=== PATIENT | female | born 1955 | race Caucasian/White ===

== ENCOUNTER 2016-07-13 18:45 | Observation (INO) ==
--- NOTE | 2016-07-13 18:47 | Emergency Department Note ---
Disposition Clinical Impression: Chest pain, Diabetes, Obesity, Hypertension, History of DVT (deep vein thrombosis), CAD (coronary artery disease) Disposition: Admitted As Inpatient Referrals: NO,PCP [Non-Partnered Physician] - Forms: ED Satisfaction Letter General Adult HPI - General Chief complaint: ED Chest Pain Stated complaint: chest pain Time Seen by Provider: 07/13/16 18:46 Source: patient, family - History of Present Illness HPI Narrative: 60-year-old female with history of diabetes and hypertension as well as a 40% coronary lesion reports to the emergency department complaining of midsternal chest pain radiating to left arm and left jaw. She came in by EMS. She was given aspirin by the EMS providers. She reports her pain has dissipated. The patient has had no trauma to the chest. There is no history of fever or cough or coughing up blood leg swelling or pain or syncope. There is no history of rash. The patient denies abdominal pain vomiting or diarrhea. She describes a pressure-like sensation. There is no history of darwni shortness of breath. The patient has had no back pain. No trouble moving the arms or legs independently. There is no history of convulsion or confusion or dysarthria. The patient reports she had a heart catheter about 2 years ago. There is no history of previous coronary stent. She had a remote DVT but does not usually take blood thinners. There is no history of pulmonary embolism. Patient has no history of aneurysms. No troubles walking talking hearing seeing or speaking. - Related Data Allergies Allergy/AdvReac Type Severity Reaction Status Date / Time acetaminophen [From Percocet] Allergy Rash Verified 07/13/16 18:46 Oxycodone [From Percocet] Allergy Rash Verified 07/13/16 18:46 All systems ED: reviewed and negative except as stated. Past Medical History - Past Medical History Source: patient Medical history: Reports: coronary artery disease, DVT, diabetes, hypertension Physical Exam - General Limitations: no limitations General appearance: alert, in no apparent distress - Head Head exam: atraumatic, normocephalic, normal inspection - Eye Eye exam: Present: normal appearance, PERRL, EOMI - ENT ENT exam: normal exam, normal oropharynx, mucous membranes moist, TM's normal bilaterally, normal external ear exam - Neck Neck exam: Present: normal inspection, full ROM, trachea midline - Chest Chest inspection: Present: normal inspection, symmetric chest wall rise. Absent : tenderness - Respiratory Respiratory exam: Present: normal lung sounds bilaterally. Absent: respiratory distress - Cardiovascular Cardiovascular exam: Present: regular rate, normal rhythm, normal heart sounds - Abdominal Exam Abdominal exam: Present: soft, Non-Tender. Absent: tenderness, distention, guarding, rebound, rigidity, pulsatile mass - Extremities Exam Extremities exam: Present: normal inspection, full ROM, normal capillary refill. Absent: tenderness, pedal edema, joint swelling, calf tenderness - Expanded Lower Extremity Exam Lower leg exam: Absent: Homans' sign Neurovascular/Tendon exam: Present: normal capillary refill. Absent: pulse deficit, motor deficit, sensory deficit, tendon deficit - Back Exam Back exam: Present: normal inspection, full ROM. Absent: tenderness, CVA tenderness (R), CVA tenderness (L), vertebral tenderness - Neurological Exam Neurological exam: Present: alert, oriented X3, CN II-XII intact. Absent: motor sensory deficit - Psychiatric Psychiatric exam: Present: normal affect, normal mood - Skin Skin exam: Present: warm, dry, intact, normal color. Absent: rash, cyanosis, diaphoresis, erythema, pallor, mottled Course Vital Signs Temperature 0 F L 07/13/16 18:50 Pulse Rate 86 07/13/16 18:50 Respiratory Rate 18 07/13/16 18:50 Blood Pressure 146/86 07/13/16 18:50 O2 Sat by Pulse Oximetry 99 07/13/16 18:50 Temperature 0 F L 07/13/16 18:50 Pulse Rate 72 07/13/16 20:18 Respiratory Rate 18 07/13/16 20:18 Blood Pressure 134/70 07/13/16 20:18 O2 Sat by Pulse Oximetry 97 07/13/16 20:18 Oxygen Delivery Oxygen Delivery Room Air Medical Decision Making - [facility] Narrative Medical decision making narrative: Patient is over 50, has a history of hypertension and diabetes and reportedly had a coronary lesion at about 40% on the previous heart catheter. She is describing left-sided chest pain radiating to the left arm and left jaw. She was given aspirin, nitroglycerin paste, and opiate analgesia. The patient is currently stable. Based on her significant risk factors and higher heart score , I thought it be appropriate to admit the patient the hospital. The patient does not appear to have leg swelling or changes suggestive of DVT making PE less likely. There is no evidence of acute intrathoracic abnormality on chest x -ray, the patient has no previous history of thoracic aneurysm. She appears to be stable, I consulted with the hospitalist regarding admission. - Lab Data Lab results reviewed: Yes I reviewed the patient's lab results. Result diagrams: 07/13/16 19:21 07/13/16 19:21 Lab Results 07/13/16 07/13/16 07/13/16 Range/Units 19:21 19:21 19:21 WBC (4.3-11.1) K/mcL RBC (3.82-4.97) M/mcL Hgb (11.5-15.4) g/dL Hct (35.3-44.9) % MCV (83.0-100.0) fL MCH (28.0-33.3) pg MCHC (31.6-35.5) g/dL RDW (11.5-14.5) % Plt Count (140-400) K/mcL MPV (9.4-12.4) fL Immature Gran % (0-4) % Seg Neutrophils % % Lymphocytes % % Monocytes % % Eosinophils % % Basophils % % Neutrophils # (1.6-8.9) K/mcL Lymphocytes # (0.6-4.6) K/mcL Monocytes # (0.0-1.3) K/mcL Eosinophils # (0.0-0.6) K/mcL Basophils # (0.0-0.2) K/mcL Immature Plt Fraction (1.1-6.1) % PT 10.1 (9.4-12.1) Seconds INR 0.9 APTT 32.5 (26.0-36.0) Seconds Sodium (136-145) mEq/L Potassium (3.5-4.5) mEq/L Chloride (98-109) mEq/L Carbon Dioxide (19-29) mEq/L BUN (7-20) mg/dL Creatinine (0.57-1.11) mg/dL Est GFR ( Amer) (> 60) Est GFR (Non-Af Amer) (> 60) BUN/Creatinine Ratio (6-26) Glucose (70-99) mg/dL Calculated Osmolality (280-300) Calcium (8.6-10.8) mg/dL Total Bilirubin 0.6 (0.2-1.2) mg/dL Direct Bilirubin 0.2 (0.0-0.5) mg/dL Indirect Bilirubin 0.4 (0.0-1.2) mg/dL AST 20 (5-34) Units/L ALT 33 (0-55) Units/L Alkaline Phosphatase 103 (38-126) Units/L Troponin I (0-0.03) ng/mL C-Reactive Protein 2 (Less than 5) mg/L Serum Total Protein 8.7 H (6.0-8.3) g/dL Albumin 4.6 (3.5-5.0) g/dL Globulin 4.1 H (2.4-3.5) g/dL Albumin/Globulin Ratio 1.1 (1.1-2.2) Lipase 30 (8-78) Units/L 07/13/16 07/13/16 07/13/16 Range/Units 19:21 19:21 19:21 WBC 7.6 (4.3-11.1) K/mcL RBC 5.27 H (3.82-4.97) M/mcL Hgb 15.4 (11.5-15.4) g/dL Hct 44.4 (35.3-44.9) % MCV 84.3 (83.0-100.0) fL MCH 29.2 (28.0-33.3) pg MCHC 34.7 (31.6-35.5) g/dL RDW 12.5 (11.5-14.5) % Plt Count 357 (140-400) K/mcL MPV 9.4 (9.4-12.4) fL Immature Gran % 0.3 (0-4) % Seg Neutrophils % 54.8 % Lymphocytes % 33.8 % Monocytes % 7.7 % Eosinophils % 2.4 % Basophils % 1.0 % Neutrophils # 4.2 (1.6-8.9) K/mcL Lymphocytes # 2.6 (0.6-4.6) K/mcL Monocytes # 0.6 (0.0-1.3) K/mcL Eosinophils # 0.2 (0.0-0.6) K/mcL Basophils # 0.1 (0.0-0.2) K/mcL Immature Plt Fraction 2.6 (1.1-6.1) % PT (9.4-12.1) Seconds INR APTT (26.0-36.0) Seconds Sodium 143 (136-145) mEq/L Potassium 3.9 (3.5-4.5) mEq/L Chloride 104 (98-109) mEq/L Carbon Dioxide 24 (19-29) mEq/L BUN 11 (7-20) mg/dL Creatinine 0.91 (0.57-1.11) mg/dL Est GFR ( Amer) > 60 (> 60) Est GFR (Non-Af Amer) > 60 (> 60) BUN/Creatinine Ratio 12 (6-26) Glucose 158 H (70-99) mg/dL Calculated Osmolality 299 (280-300) Calcium 10.2 (8.6-10.8) mg/dL Total Bilirubin (0.2-1.2) mg/dL Direct Bilirubin (0.0-0.5) mg/dL Indirect Bilirubin (0.0-1.2) mg/dL AST (5-34) Units/L ALT (0-55) Units/L Alkaline Phosphatase (38-126) Units/L Troponin I 0.00 (0-0.03) ng/mL C-Reactive Protein (Less than 5) mg/L Serum Total Protein (6.0-8.3) g/dL Albumin (3.5-5.0) g/dL Globulin (2.4-3.5) g/dL Albumin/Globulin Ratio (1.1-2.2) Lipase (8-78) Units/L - Radiology Data Radiology results reviewed: Yes I reviewed the patient's radiology results.
[2016-07-13 19:30] LABS: Basophils # 0.1 K/mcL (0.0-0.2); Eosinophils # 0.2 K/mcL (0.0-0.6); Eosinophils % 2.4 %; Hematocrit 44.4 % (35.3-44.9); Hemoglobin 15.4 g/dL (11.5-15.4); Immature Granulocytes % 0.3 % (0-4); Immature Platelets 2.6 % (1.1-6.1); Lymphocytes # 2.6 K/mcL (0.6-4.6); Lymphocytes % 33.8 %; Mean Corpuscular HGB Conc 34.7 g/dL (31.6-35.5); Mean Corpuscular Hemoglobin 29.2 pg (28.0-33.3); Mean Corpuscular Volume 84.3 fL (83.0-100.0); Mean Platelet Volume 9.4 fL (9.4-12.4); Monocytes # 0.6 K/mcL (0.0-1.3); Monocytes % 7.7 %; Neutrophils # 4.2 K/mcL (1.6-8.9); Platelet Count 357 K/mcL (140-400); Red Blood Count 5.27 M/mcL (3.82-4.97); Red Cell Distribution Width 12.5 % (11.5-14.5); Segmented Neutrophils % 54.8 %
[2016-07-13] MEDS ORDERED: Ondansetron 4 MG/2 ML VIAL IVP ONE (19:33)
[2016-07-13] MEDS ORDERED: Nitroglycerin 1 INCH/GM PACKET TP ONE (19:33)
[2016-07-13] MEDS ORDERED: *HR* Morphine 2 MG/ML SYRINGE IVP ONE (19:34)
[2016-07-13 19:42] LABS: INR 0.9; Prothrombin Time 10.1 Seconds (9.4-12.1)
[2016-07-13 19:43] LABS: BUN/Creatinine Ratio 12 (6-26); Blood Urea Nitrogen 11 mg/dL (7-20); Calcium 10.2 mg/dL (8.6-10.8); Carbon Dioxide 24 mEq/L (19-29); Chloride 104 mEq/L (98-109); Glucose 158 mg/dL (70-99); Osmolality,Calculated 299 (280-300); Potassium 3.9 mEq/L (3.5-4.5); Sodium 143 mEq/L (136-145); eGFR For African Americans > 60 (> 60); eGFR For Non-African Americans > 60 (> 60)
[2016-07-13 19:44] LABS: Albumin 4.6 g/dL (3.5-5.0); Albumin/Globulin Ratio 1.1 (1.1-2.2); Bilirubin,Direct 0.2 mg/dL (0.0-0.5); Bilirubin,Indirect 0.4 mg/dL (0.0-1.2); Bilirubin,Total 0.6 mg/dL (0.2-1.2); Globulin 4.1 g/dL (2.4-3.5); Total Protein 8.7 g/dL (6.0-8.3)
[2016-07-13 19:45] LABS: Activated Partial Thrombo Time 32.5 Seconds (26.0-36.0)
[2016-07-13] MEDS ORDERED: Aspirin 325 MG TABLET PO ONE (20:20)
[2016-07-13] MEDS ORDERED: *HR* HYDROmorphone (PF) 1 MG/ML SYRINGE IVP ONE (20:20)
[2016-07-13] MEDS ORDERED: D5% in Water 1,000 ML IV PRN (22:16)
[2016-07-13] MEDS ORDERED: Dextrose Gel 15 GM PO PRN ×2 (22:16)
[2016-07-13] MEDS ORDERED: *HR* Dextrose 50 % in Water (Syg) 50 ML SYRINGE IVP PRN (22:16)
[2016-07-13] MEDS ORDERED: Naloxone 0.4 MG/ML INJ IVP PRN (22:18)
[2016-07-13] MEDS ORDERED: *HR* Morphine 2 MG/ML SYRINGE IVP PRN (22:26)
[2016-07-13] MEDS ORDERED: Ondansetron 4 MG/2 ML VIAL IVP PRN (22:26)
[2016-07-13] MEDS ORDERED: Acetaminophen 325 MG TABLET PO PRN (22:26)
--- NOTE | 2016-07-13 22:46 | Internal Med History&Physical ---
Date of Encounter: 07/13/16 Time of Encounter: 20:35 Internal Medicine - H&P: HPI Chief complaint: chest pain, SOB X 1 DAY Admitted From: Emergency Dept Plans for Post Hospital Care: Home History of present illness: Ms. Devine is a 60 year old female with medical history significant for DM2, HTN , HLD, she presents via EMS with sub-sternal and left-sided chest pain at 4: 30pm today, with radiation to the left upper arm, shoulder, neck and jaw via in by EMS. She received SL nitroglycerine and aspirin in transit with only a marginal improvement in pain. At the time she arrived the ED, THE CHEST PAIN HAD DISSIPATED. She associates period of chest pain with nausea and dizziness. She had a similar but less intense chest pain. No recent chest trauma, no cough, or sorethroat, coughing, leg swelling or syncope. The patient has had no trauma to the chest. There is no history of fever or cough or coughing up blood leg swelling or pain or syncope. There is no history of rash. The patient denies abdominal pain vomiting or diarrhea. She had LHC in 2013, and was informed she had 40% stenosis of one of her coronaries. No history of SC. She has a emote history of DVTbut is not on anticoagulation. She is FULL CODE as per discussion, she nominates her daughter as her NOK/POA. Source: patient Medical history: Reports: coronary artery disease, DVT, diabetes, hypertension, fibromyalgia, DM2, seizure disorder, TIA/CVA, LHC IN 2013. Surgical history: QUAN, thyroidectomy, bladder sling, cholecystectomy, Psychiatry history: none Family history: mother AND BROTHER CAD/CABG, sister wears a loop recorder. MOTHER: KIDNEY DX, VALVOLOPLASTY, DM2, brother DM2, HTN ROS: A 10-point ROS was performed, positives and relevant negatives are detailed , system-symptom not mentioned is assumed negative unless otherwise stated. Vital Signs Temperature 0 F L 07/13/16 18:50 Pulse Rate 86 07/13/16 18:50 Respiratory Rate 18 07/13/16 18:50 Blood Pressure 146/86 07/13/16 18:50 O2 Sat by Pulse Oximetry 99 07/13/16 18:50 Temperature 0 F L 07/13/16 18:50 Pulse Rate 72 07/13/16 20:18 Respiratory Rate 18 07/13/16 20:18 Blood Pressure 134/70 07/13/16 20:18 O2 Sat by Pulse Oximetry 97 07/13/16 20:18 O/E: not in distress, ill looking, lethargic HEENT: Not pale, anicteric, afebrile, acyanotic, no JVD Chest: CTAB, chest pain not reproduced by chest wall palpation or arm movements. Heart/CVS: RRR, HS1/2, no murmur Abdomen: soft, non-tender, no masses [employer]: AAO x 3, no gross focal neurological deficits, moves all limbs spontaneously. Muscle power=5/5 in all extremities Skin: no active skin lesion Extremities: no normal pedal pulses, no calf tenderness, no pedal edema Lab Results 07/13/16 07/13/16 07/13/16 Range/Units 19:21 19:21 19:21 WBC (4.3-11.1) K/mcL RBC (3.82-4.97) M/mcL Hgb (11.5-15.4) g/dL Hct (35.3-44.9) % MCV (83.0-100.0) fL MCH (28.0-33.3) pg MCHC (31.6-35.5) g/dL RDW (11.5-14.5) % Plt Count (140-400) K/mcL MPV (9.4-12.4) fL Immature Gran % (0-4) % Seg Neutrophils % % Lymphocytes % % Monocytes % % Eosinophils % % Basophils % % Neutrophils # (1.6-8.9) K/mcL Lymphocytes # (0.6-4.6) K/mcL Monocytes # (0.0-1.3) K/mcL Eosinophils # (0.0-0.6) K/mcL Basophils # (0.0-0.2) K/mcL Immature Plt Fraction (1.1-6.1) % PT 10.1 (9.4-12.1) Seconds INR 0.9 APTT 32.5 (26.0-36.0) Seconds Sodium (136-145) mEq/L Potassium (3.5-4.5) mEq/L Chloride (98-109) mEq/L Carbon Dioxide (19-29) mEq/L BUN (7-20) mg/dL Creatinine (0.57-1.11) mg/dL Est GFR ( Amer) (> 60) Est GFR (Non-Af Amer) (> 60) BUN/Creatinine Ratio (6-26) Glucose (70-99) mg/dL Calculated Osmolality (280-300) Calcium (8.6-10.8) mg/dL Total Bilirubin 0.6 (0.2-1.2) mg/dL Direct Bilirubin 0.2 (0.0-0.5) mg/dL Indirect Bilirubin 0.4 (0.0-1.2) mg/dL AST 20 (5-34) Units/L ALT 33 (0-55) Units/L Alkaline Phosphatase 103 (38-126) Units/L Troponin I (0-0.03) ng/mL C-Reactive Protein 2 (Less than 5) mg/L Serum Total Protein 8.7 H (6.0-8.3) g/dL Albumin 4.6 (3.5-5.0) g/dL Globulin 4.1 H (2.4-3.5) g/dL Albumin/Globulin Ratio 1.1 (1.1-2.2) Lipase 30 (8-78) Units/L 07/13/16 07/13/16 07/13/16 Range/Units 19:21 19:21 19:21 WBC 7.6 (4.3-11.1) K/mcL RBC 5.27 H (3.82-4.97) M/mcL Hgb 15.4 (11.5-15.4) g/dL Hct 44.4 (35.3-44.9) % MCV 84.3 (83.0-100.0) fL MCH 29.2 (28.0-33.3) pg MCHC 34.7 (31.6-35.5) g/dL RDW 12.5 (11.5-14.5) % Plt Count 357 (140-400) K/mcL MPV 9.4 (9.4-12.4) fL Immature Gran % 0.3 (0-4) % Seg Neutrophils % 54.8 % Lymphocytes % 33.8 % Monocytes % 7.7 % Eosinophils % 2.4 % Basophils % 1.0 % Neutrophils # 4.2 (1.6-8.9) K/mcL Lymphocytes # 2.6 (0.6-4.6) K/mcL Monocytes # 0.6 (0.0-1.3) K/mcL Eosinophils # 0.2 (0.0-0.6) K/mcL Basophils # 0.1 (0.0-0.2) K/mcL Immature Plt Fraction 2.6 (1.1-6.1) % PT (9.4-12.1) Seconds INR APTT (26.0-36.0) Seconds Sodium 143 (136-145) mEq/L Potassium 3.9 (3.5-4.5) mEq/L Chloride 104 (98-109) mEq/L Carbon Dioxide 24 (19-29) mEq/L BUN 11 (7-20) mg/dL Creatinine 0.91 (0.57-1.11) mg/dL Est GFR ( Amer) > 60 (> 60) Est GFR (Non-Af Amer) > 60 (> 60) BUN/Creatinine Ratio 12 (6-26) Glucose 158 H (70-99) mg/dL Calculated Osmolality 299 (280-300) Calcium 10.2 (8.6-10.8) mg/dL Total Bilirubin (0.2-1.2) mg/dL Direct Bilirubin (0.0-0.5) mg/dL Indirect Bilirubin (0.0-1.2) mg/dL AST (5-34) Units/L ALT (0-55) Units/L Alkaline Phosphatase (38-126) Units/L Troponin I 0.00 (0-0.03) ng/mL C-Reactive Protein (Less than 5) mg/L Serum Total Protein (6.0-8.3) g/dL Albumin (3.5-5.0) g/dL Globulin (2.4-3.5) g/dL Albumin/Globulin Ratio (1.1-2.2) Lipase (8-78) Units/L IMP Atypical chest pain Chronic morbidities CAD DM2 HTN HLD Seizure disorder Fibromyalgia PLAN Admit to telemetry ACS work-up OPTIMAL PAIN CONTROL Evaluate for cardiovascular risk factors Probable cardiac stress test in the AM IF serial troponin remains normal DVT prophylaxis with Lovenox. Continue other medications of chronic morbidties. I discussed my findings and assessment with the patient, she verbalized understanding and is agreeable to admission. She is high risk due to pain, especially in the setting of multiple cardiovascualr risk factors. Past Med Surg Social Fam HX - Past Medical History Medical history: coronary artery disease, DVT, diabetes, fibromyalgia, hypertension, seizures Psychiatric history: no psych history - Past Surgical History Surgical History: no surgical history - Social History Smoking Status: Never smoker Smokeless Tobacco Status: No Alcohol use: none Drug use: none - Family History Mother Hx Family Cardiac Disorders: Yes (valve replacement) Brother Hx Family Cardiac Disorders: Yes (open heart x2) Internal Medicine - H&P: Meds Aspirin [Lo-Dose Aspirin EC] 81 mg PO DAILY 07/13/16 [History] Atorvastatin Calcium 10 mg PO DAILY 07/13/16 [History] Calcium Carb/Mag/Vitamin D3 [Coral Calcium 1,500 mg Cap] 1 each PO DAILY [History] Clopidogrel [Plavix] 75 mg PO DAILY 07/13/16 [History] Diclofenac Sodium [Voltaren] 100 gm TP DAILY PRN 07/13/16 [History] LevETIRAcetam [Keppra] 500 mg PO BID 07/13/16 [History] Levothyroxine [Synthroid] 125 mcg PO 0630 07/13/16 [History] Metformin [Glucophage] 1,000 mg PO BID 07/13/16 [History] Allergies acetaminophen [From Percocet] Allergy (Verified 07/13/16 18:46) Rash Oxycodone [From Percocet] Allergy (Verified 07/13/16 18:46) Rash All Systems PM: A 10-system review of systems was performed and is negative for pertinent findings except as documented above in the HPI. - Constitutional Vitals: Temp Pulse Resp BP Pulse Ox 97.6 F 58 14 142/79 93 L 07/13/16 22:00 07/13/16 22:00 07/13/16 22:00 07/13/16 22:00 07/13/16 22:00 Internal Med - H&P Results - Labs CBC & Chem 7: 07/13/16 19:21 07/13/16 19:21
[2016-07-13] MEDS: Insulin LISPRO 300 UNITS/3 ML VIAL SQ SCH (22:54)
[2016-07-13 23:19] LABS: Hemoglobin A1C 7.2 %
[2016-07-14] MEDS ORDERED: *HR* Enoxaparin 40 MG/0.4 ML SYRINGE SQ SCH (06:00)
[2016-07-14] MEDS ORDERED: Regadenoson 0.4 MG/5 ML SYRINGE IVP ONE (06:07)
[2016-07-14] MEDS: Insulin LISPRO 300 UNITS/3 ML VIAL SQ SCH ×2 (07:00→11:58)
[2016-07-14] MEDS ORDERED: levETIRAcetam 250 MG TABLET PO SCH (09:00)
[2016-07-14] MEDS ORDERED: Aspirin Enteric Coated 81 MG Tablet PO SCH (09:00)
--- NOTE | 2016-07-14 10:55 | Nuclear Medicine Stress Report ---
Regadenoson Nuclear Stress Name: Dulce Devine Date of Study: 07/14/2016 Date: 1955 Ht: 66.0 in Medical Record#: [id number] Age: 60 Wt: 185.0 lb Gender: Female Order #: [id number] Location: [facility] OP Room: [facility] Supervising Provider: Sammie Valladares CNP Reading Physician: Julissa Bettencourt DO Ordering Physician: Jamia Pérez CNP Primary Care Physician: Cynthia Grubbs CNP Stress Technologist: Char Varner RRT Sales Support Representative: Adrian Albrecht Indications: Chest Pain Impression: Perfusion imaging was negative for ischemia or infarct. Pharmacologic ECG was negative for ischemia at the level of heart rate achieved. Gated EF = 66%. History: Hypertension Diabetes Stress Test Summary: Stress Test Type: Pharmacologic Regadenoson 0.4mg/5ml given IV Baseline Information: Initial Heart Rate: 56 Blood Pressure: 120/70 Stress Information: Test Terminated Due to (primary): As per protocol Maximum Blood Pressure: 128/68 Maximum Heart Rate: 90 Percent Maximum Heart Rate Achieved: 56 Double Product: [id number] METS Reached: 1 Symptoms: Chest pain same during testing Nuclear Summary: SPECT myocardial perfusion imaging using [id number] Sestamibi given intravenously was performed at rest and following cardiac stress testing. The resting images were obtained following initial dose of 11.7 mCi. Following stress an additional dose of 31.8 mCi was given at peak exercise or 30 seconds post regadenoson infusion. Medication Given: Time Medication Dose Units Route Findings: Stress Note * Resting ECG demonstrated normal sinus rhythm and otherwise normal appearing ECG. * Pharmacologic stress ECG is negative for ischemia at level of heart rate achieved. * No arrhythmias were noted during stress. * Patient had no chest pain during stress. Hemodynamic responses * Normal hemodynamic responses to pharmacologic stress. Study Quality * Study quality is good. Gated EF % * Gated EF = 66%. Left Ventricle * The left ventricle is not dilated. TID * No evidence of transient ischemic dilatation. Lung Uptake * There is no evidence of increase lung uptake. NORMALS * Normal wall motion. * Normal segmental perfusion in stress. * Normal Segmental Perfusion in rest. Updated by Julissa Bettencourt on 07/14/2016 10:46:58 AM electronically signed on 07/14/2016 10:48:12 AM with status of Final
[2016-07-14 11:12] VITALS: BP 111/62
--- NOTE | 2016-07-14 13:27 | Discharge Summary ---
Date of Encounter: 07/14/16 Time of Encounter: 12:30 - Discharge Diagnosis (1) Chest pain Priority: Primary Status: Acute Comments: Chest x-ray negative. Troponins negative. Stress test negative. ACS ruled out. After patient was informed that acute coronary syndrome was ruled out, she then stated that she was having left-sided facial numbness as well as left arm weakness. Left-sided anterior chest pain is reproducible with palpation and highly consistent with musculoskeletal etiology. Qualifiers: Chest pain type: unspecified Qualified Code(s): R07.9 - Chest pain, unspecified (2) LUE weakness Priority: Primary Status: Acute Comments: Very low suspicion for acute CVA given the inconsistency of her symptoms and her physical examination however will obtain head CT. Head CT negative. Follow -up outpatient. (3) Fibromyalgia Priority: Secondary Status: Chronic (4) CAD (coronary artery disease) Priority: Secondary Status: Chronic Qualifiers: Coronary Disease-Associated Artery/Lesion type: [place] artery [place] vs. transplanted heart: [place] heart Associated angina: without angina Qualified Code(s): I25.10 - Atherosclerotic heart disease of [place] coronary artery without angina pectoris (5) Diabetes Priority: Secondary Status: Chronic Comments: Controlled at home with an A1c of 7.2%, recommend continued follow-up outpatient. Qualifiers: Diabetes mellitus type: type 2 Diabetes mellitus complication status: without complication Diabetes mellitus senior living insulin use: without senior living use Qualified Code(s): E11.9 - Type 2 diabetes mellitus without complications (6) History of DVT (deep vein thrombosis) Priority: Secondary Status: Chronic (7) Hypertension Priority: Secondary Status: Chronic Comments: Controlled, recommend continued follow up outpatient. Qualifiers: Hypertension type: unspecified secondary hypertension Qualified Code(s): I15.9 - Secondary hypertension, unspecified; I15 - Secondary hypertension (8) Obesity Priority: Secondary Status: Chronic Qualifiers: Obesity type: due to excess calories Obesity severity: non-morbid Qualified Code(s): E66.09 - Other obesity due to excess calories - Discharge Medications Home Medications: Aspirin [Lo-Dose Aspirin EC] 81 mg PO DAILY 07/13/16 [History] Atorvastatin Calcium 10 mg PO DAILY 07/13/16 [History] Calcium Carb/Mag/Vitamin D3 [Coral Calcium 1,500 mg Cap] 1 cap PO DAILY [History] Clopidogrel [Plavix] 75 mg PO DAILY 07/13/16 [History] Diclofenac Sodium [Voltaren] 100 gm TP DAILY PRN 07/13/16 [History] LevETIRAcetam [Keppra] 500 mg PO BID 07/13/16 [History] Levothyroxine [Synthroid] 125 mcg PO DAILY 07/13/16 [History] Metformin [Glucophage] 1,000 mg PO BID 07/13/16 [History] Allergies/Adverse Reactions: Allergies acetaminophen [From Percocet] Allergy (Verified 07/13/16 18:46) Rash Oxycodone [From Percocet] Allergy (Verified 07/13/16 18:46) Rash Procedures/tests Complete & Pending: Procedures Performed prior 72 hours Category Date Time Status CT head/brain wo con [CT] Routine Cat Scan 07/14/16 12:43 Taken NM chidi perf SPECT multi [NM] Routine Exams 07/14/16 05:47 Taken EKG [ECG 12 lead ECG] [ECG] Stat Y 07/14/16 04:31 Completed SP pharm nuclear stress Routine Y 07/14/16 22:43 Completed Date of admission: 07/13/16 21:08 Primary care physician: Cynthia Grubbs CNP Discharging clinician: Jamia Pérez Anticipated date of discharge: 07/14/16 (Head CT pending) - Patient Status Disposition: Home, Self-Care Condition: Good Functional capacity at discharge: independent ambulation Overall status at discharge: patient is back to baseline - Discharge Instructions Follow Up With: Cynthia Grubbs CNP [Primary Care Provider] - 07/16/16 8:00 am Dane Nagel DO [Partnered Physician] - Additional Instructions: Follow-up with primary care provider as scheduled. Follow-up with neurology as needed for further EMG testing at Neurologist's discretion - Diet and Activity Activity: increase activity as tolerated Diet: diabetic diet, low fat, low cholesterol, low salt diet Hospital course: Ms. Devine is a 60 year old female with past medical history of diabetes, hypertension, hyperlipidemia, fibromyalgia, CAD. Patient presented to the emergency room chief complaint substernally and left-sided chest pain beginning on the day of presentation. Patient stating chest pain radiated to her left upper arm, shoulder, neck and jaw. Patient received nitroglycerin and aspirin in route to the emergency department with marginal improvement in her pain. Pain had dissipated prior to presentation to the emergency department. Since she has symptoms of nausea and dizziness. Patient denied cough, leg swelling, syncope or trauma. Workup in the emergency department unremarkable. Chest x- ray negative. Patient was admitted to the hospitalist service for further evaluation and management. Troponins negative. Patient had a nuclear stress test that was negative. ACS ruled out. Upon receiving results of stress test, patient's chief complaint then quickly became left-sided facial numbness as well as left upper extremity weakness. Her symptoms were inconsistent on examination and by history. Patient also endorsed intermittent blurred vision over the past several weeks prior to presentation but was unable to state how long the episodes will last him whether or not it was 1 or both eyes. Very low suspicion for CVA. Head CT obtained and was negative. Given the inconsistency between her symptoms and her physical examination, no further workup warranted at that point as she did not elicit these symptoms until after her chest pain was ruled out. On examination, chest pain reproducible with palpation and consistent with musculoskeletal etiology. 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 Of note, she sees neurologist Dr. Nagel and she has upcoming EMGs related to her intermittent lower extremity weaknesses. She was discharged home in stable condition with close outpatient follow-up recommended. ITS Impressions Chest X-Ray 07/13/16 19:06 IMPRESSION: No acute cardiopulmonary abnormality. D/ / Trace Puente MD / Trace Puente MD Interpreting Provider: Trace Puente MD Head CT 07/14/16 12:43 IMPRESSION: No acute intracranial abnormality. D/ / Swapnil Castillo MD / Swapnil Castillo MD Interpreting Provider: Swapnil Castillo MD Nuclear stress test impression: Perfusion imaging was negative for ischemia or infarct. Pharmacologic ECG was negative for ischemia at the level of heart rate achieved. Gated ejection fraction = 66%. - Time Spent with Patient Total time spent providing and/or coordinating discharge services: - Constitutional Vitals: Temp Pulse Resp BP Pulse Ox 98.0 F 57 17 111/62 95 07/14/16 11:09 07/14/16 11:09 07/14/16 11:09 07/14/16 11:09 07/14/16 11:09 General appearance: Present: A&O X 3, pleasant, no acute distress, answers questions appropriately - Head Head exam: Present: atraumatic, normocephalic - Eye Eye exam: Present: PERRL, conjuntiva pink, sclera anicteric Pupils: Present: PERRL - Neck Neck exam general surgery: Present: supple, trachea midline. Absent: lymphadenopathy - Respiratory Respiratory exam: Present: CTAB. Absent: accessory muscle use, rales, respiratory distress, rhonchi, wheezes - Cardiovascular Cardiovascular exam: Present: RRR, +S1, +S2. Absent: diastolic murmur, gallop, rubs, systolic murmur - GI/Abdominal GI/Abdominal exam: Present: normal bowel sounds, soft, no peritoneal signs. Absent: distended, tenderness - Extremities Exam Extremities exam: Present: warm, radial pulses palpable and symetrical. Absent : calf tenderness, cyanotic, pedal edema - Neurological Exam Neurological exam: Present: alert, CN II-XII intact, oriented X3, no focal deficits. Absent: strengths equal and symetr throughout (Inconsistent; LUE4/5) , pronater drift, facial droop, speech deficit - Expanded Neurological Exam Neurological exam expanded: Present: protecting the airway Patient oriented to: Present: person, place, time Speech: Present: fluid speech Cranial Nerves: EOM's intact PM: Normal, tongue deviation PM: Normal Neuro motor strength exam: LUE: 4 (inconsistent- only present intermittently), RUE: 5, LLE: 5, RLE: 5 Coma Scale Eye Opening: Spontaneous Coma Scale Motor Response: Obeys Commands Coma Scale Verbal Response: Oriented Coma Scale Total: 15 - Skin Skin exam: Present: dry, intact, normal color, warm
--- NOTE | 2016-07-14 16:06 | Electrocardiograph Report ---
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
--- NOTE | 2016-07-14 16:14 | Electrocardiograph Report ---
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
== END 2016-07-14 16:00 | disposition home or self-care (01) ==
LOC: EMEROO 18:45 → 3BNU 18:45
PROVIDERS: ADMIT Family Medicine; ATTEND Nurse Practitioner Family

== ENCOUNTER 2020-07-11 14:48 | Inpatient (IN) ==
[2020-07-11] MEDS ORDERED: Aspirin 81 MG TAB.CHEW PO ONE (15:01)
[2020-07-11 15:31] LABS: Basophils # 0.1 K/mcL (0.0-0.2); Eosinophils # 0.2 K/mcL (0.0-0.6); Eosinophils % 1.9 %; Hemoglobin 12.5 g/dL (11.5-15.4); Immature Granulocytes % 0.4 % (0-4); Lymphocytes # 1.9 K/mcL (0.6-4.6); Lymphocytes % 23.8 %; Mean Corpuscular HGB Conc 33.8 g/dL (31.6-35.5); Mean Corpuscular Hemoglobin 29.4 pg (28.0-33.3); Mean Corpuscular Volume 87.1 fL (83.0-100.0); Mean Platelet Volume 9.8 fL (9.4-12.4); Monocytes # 0.7 K/mcL (0.0-1.3); Monocytes % 8.5 %; Neutrophils # 5.2 K/mcL (1.6-8.9); Platelet Count 273 K/mcL (140-400); Red Blood Count 4.25 M/mcL (3.82-4.97); Red Cell Distribution Width 12.3 % (11.5-14.5); Segmented Neutrophils % 64.4 %
[2020-07-11 15:47] LABS: BUN/Creatinine Ratio 29 (6-26); Blood Urea Nitrogen 23 mg/dL (8-23); Calcium 9.5 mg/dL (8.6-10.3); Carbon Dioxide 28 mEq/L (23-29); Chloride 105 mEq/L (98-107); Glucose 137 mg/dL (70-105); Osmolality,Calculated 294 (280-300); Potassium 4.5 mEq/L (3.5-5.1); Sodium 139 mEq/L (136-145); Troponin I < 0.03 ng/mL (< 0.04); eGFR For African Americans > 60 (> 60); eGFR For Non-African Americans > 60 (> 60)
[2020-07-11 16:09] LABS: Bacteria,Urine Moderate per hpf (None-Few); Bilirubin,Urine Negative (Negative); Blood,Urine Negative (Negative); Clarity,Urine Clear (Clear); Color,Urine Yellow (Yellow); Glucose,Urine (UA) Normal (Normal); Hyaline Casts,Urine Few per lpf (None Seen); Ketones,Urine Trace mg/dL (Negative); Leukocyte Esterase,Urine Small (Negative); Mucus,Urine Few per lpf (None-Few); Nitrite,Urine Positive (Negative); PH,Urine 5.5 pH Units (5.0-8.0); Protein,Urine 100 mg/dL (Neg-Trace); RBC,Urine 0-3 per hpf (0-3); Specific Gravity,Urine > 1.030 (1.010-1.025); Squamous Epithelial Cell,Urine Few per hpf (None-Few); Transitional Epi Cells,Urine Few per hpf (None-Few); Urobilinogen,Urine Normal (Normal)
[2020-07-11 16:13] LABS: INR 1.1; Prothrombin Time 13.1 Seconds (9.4-12.1)
[2020-07-11 16:15] LABS: Activated Partial Thrombo Time 30.1 Seconds (26.0-36.0)
[2020-07-11] MEDS ORDERED: Morphine Sulfate 2 MG/ML SYRINGE IVP ONE (18:13)
[2020-07-11] MEDS ORDERED: Nitroglycerin 0.4 MG TAB.SUBL SL PRN (18:14)
[2020-07-11] MEDS ORDERED: D5% in Water 1,000 ML IVC PRN (18:17)
[2020-07-11] MEDS ORDERED: *HR* Dextrose 50 % in Water (Vial) 50 ML VIAL IVP PRN (18:17)
[2020-07-11] MEDS ORDERED: Dextrose Gel 15 GM/37.5 ML TUBE PO PRN ×2 (18:17)
[2020-07-11] MEDS ORDERED: Naloxone 0.4 MG/ML INJ IVP PRN (18:22)
[2020-07-11] MEDS ORDERED: Acetaminophen 325 MG TABLET PO PRN (18:22)
[2020-07-11] MEDS: Insulin LISPRO 300 UNITS/3 ML VIAL SUBQ SCH (20:16)
[2020-07-11] MEDS: Piperacillin/Tazobactam 3.375 GM in 0.9 % Sodium Chloride Mini Bag 100 ML IVPB SCH (20:29)
[2020-07-11] MEDS: *HR* Heparin 5,000 UNIT/ML VIAL SQ SCH (20:29)
[2020-07-11] MEDS ORDERED: Morphine Sulfate 2 MG/ML SYRINGE IVP PRN (21:50)
[2020-07-12] MEDS: Latanoprost 2.5 ML BOTTLE BOTH EYES SCH ×2 (01:57→18:33)
[2020-07-12] MEDS: Insulin LISPRO 300 UNITS/3 ML VIAL SUBQ SCH ×9 (02:04→22:47)
[2020-07-12] MEDS: Piperacillin/Tazobactam 3.375 GM in 0.9 % Sodium Chloride Mini Bag 100 ML IVPB SCH ×3 (03:50→18:32)
[2020-07-12 04:27] LABS: Hematocrit 37.8 % (35.3-44.9); Hemoglobin 12.4 g/dL (11.5-15.4); Mean Corpuscular HGB Conc 32.8 g/dL (31.6-35.5); Mean Corpuscular Volume 88.5 fL (83.0-100.0); Mean Platelet Volume 9.8 fL (9.4-12.4); Platelet Count 268 K/mcL (140-400); Red Blood Count 4.27 M/mcL (3.82-4.97); Red Cell Distribution Width 12.3 % (11.5-14.5); White Blood Count 6.9 K/mcL (4.3-11.1)
[2020-07-12 04:35] LABS: Prothrombin Time 11.6 Seconds (9.4-12.1)
[2020-07-12 04:38] LABS: Activated Partial Thrombo Time 22.2 Seconds (26.0-36.0)
[2020-07-12 04:47] LABS: BUN/Creatinine Ratio 29 (6-26); Blood Urea Nitrogen 21 mg/dL (8-23); Calcium 9.2 mg/dL (8.6-10.3); Carbon Dioxide 24 mEq/L (23-29); Chloride 109 mEq/L (98-107); Chol/HDL Ratio 2.6 (0-4.9); Cholesterol 87 mg/dL (< 200); Glucose 107 mg/dL (70-105); HDL Cholesterol 33 mg/dL (40-59); LDL Cholesterol,Calculated 26 mg/dL (< 100); Magnesium 1.8 mg/dL (1.6-2.6); Osmolality,Calculated 293 (280-300); Potassium 4.1 mEq/L (3.5-5.1); Sodium 140 mEq/L (136-145); Triglycerides 140 mg/dL (< 150); eGFR For African Americans > 60 (> 60); eGFR For Non-African Americans > 60 (> 60)
[2020-07-12 04:48] LABS: Estimated Average Glucose 166 mg/dl; Hemoglobin A1C 7.4 %
[2020-07-12] MEDS: *HR* Heparin 5,000 UNIT/ML VIAL SQ SCH ×3 (05:28→20:33)
[2020-07-12] MEDS ORDERED: Regadenoson 0.4 MG/5 ML SYRINGE IVP ONE (06:41)
[2020-07-12] MEDS ORDERED: Isosorbide MONOnitrate (24 HR) 30 MG TAB.ER.24H PO SCH (09:00)
[2020-07-12] MEDS: Aspirin Enteric Coated 81 MG Tablet PO SCH (10:00)
[2020-07-12] MEDS: Metoprolol XL (24 HR) Succ 25 MG TAB.ER.24H PO SCH (10:00)
[2020-07-12] MEDS: Cholecalciferol (D-3) 1,000 UNIT (25MCG) TABLET PO SCH (10:00)
[2020-07-12] MEDS: levETIRAcetam 250 MG TABLET PO SCH ×2 (10:00→20:32)
[2020-07-12] MEDS: Fluticasone Propionate Nasal 50 MCG/SPRAY BOTTLE NS SCH (10:29)
[2020-07-12] MEDS ORDERED: Isosorbide MONOnitrate (24 HR) 30 MG TAB.ER.24H PO ONE (11:39)
[2020-07-12] MEDS ORDERED: levETIRAcetam 250 MG TABLET PO SCH (19:00)
[2020-07-12] MEDS ORDERED: Ondansetron 4 MG/2 ML VIAL IVP PRN (19:10)
[2020-07-13 01:32] LABS: Hematocrit 37.6 % (35.3-44.9); Hemoglobin 12.5 g/dL (11.5-15.4); Mean Corpuscular HGB Conc 33.2 g/dL (31.6-35.5); Mean Corpuscular Hemoglobin 28.9 pg (28.0-33.3); Mean Platelet Volume 9.9 fL (9.4-12.4); Platelet Count 275 K/mcL (140-400); Red Blood Count 4.32 M/mcL (3.82-4.97); White Blood Count 7.1 K/mcL (4.3-11.1)
[2020-07-13 01:46] LABS: BUN/Creatinine Ratio 18 (6-26); Blood Urea Nitrogen 16 mg/dL (8-23); Calcium 9.3 mg/dL (8.6-10.3); Carbon Dioxide 28 mEq/L (23-29); Chloride 105 mEq/L (98-107); Glucose 132 mg/dL (70-105); Osmolality,Calculated 291 (280-300); Sodium 139 mEq/L (136-145); eGFR For African Americans > 60 (> 60); eGFR For Non-African Americans > 60 (> 60)
[2020-07-13] MEDS: Piperacillin/Tazobactam 3.375 GM in 0.9 % Sodium Chloride Mini Bag 100 ML IVPB SCH ×2 (03:30→10:14)
[2020-07-13] MEDS: Insulin LISPRO 300 UNITS/3 ML VIAL SUBQ SCH ×4 (05:28→10:40)
[2020-07-13] MEDS: *HR* Heparin 5,000 UNIT/ML VIAL SQ SCH (05:34)
[2020-07-13 07:28] VITALS: BP 125/71
[2020-07-13] MEDS: levETIRAcetam 250 MG TABLET PO SCH (07:37)
[2020-07-13] MEDS: Cholecalciferol (D-3) 1,000 UNIT (25MCG) TABLET PO SCH (07:37)
[2020-07-13] MEDS: Metoprolol XL (24 HR) Succ 25 MG TAB.ER.24H PO SCH (07:37)
[2020-07-13] MEDS: Aspirin Enteric Coated 81 MG Tablet PO SCH (07:37)
[2020-07-13] MEDS: Fluticasone Propionate Nasal 50 MCG/SPRAY BOTTLE NS SCH (07:42)
[2020-07-13] MEDS ORDERED: Isosorbide MONOnitrate (24 HR) 30 MG TAB.ER.24H PO SCH (09:00)
== END 2020-07-13 10:47 | disposition home or self-care (01) | DRG 303 ==
LOC: 3BNU 14:48 → EMEROOARM 14:48 → SUATTDRO 17:03 → 3BNU 18:21
PROVIDERS: ADMIT Student in an Organized Health Care Education/Training Program; ATTEND Internal Medicine

== ENCOUNTER 2021-04-04 21:11 | Inpatient (IN) ==
[2021-04-04] MEDS ORDERED: Ondansetron 4 MG/2 ML VIAL IVP ONE (22:15)
[2021-04-04] MEDS ORDERED: 0.9 % Sodium Chloride 1,000 ML IV ONE (22:15)
[2021-04-04] MEDS ORDERED: Ketorolac 30 MG/ML VIAL IVP ONE (22:15)
[2021-04-04 23:30] LABS: Bacteria,Urine Few per hpf (None-Few); Hyaline Casts,Urine Moderate per lpf (None Seen); Mucus,Urine Few per lpf (None-Few); RBC,Urine 0-3 per hpf (0-3); Squamous Epithelial Cell,Urine Moderate per hpf (None-Few)
[2021-04-04 23:50] LABS: Basophils % 0.4 %; Hematocrit 41.7 % (35.3-44.9); Hemoglobin 13.7 g/dL (11.5-15.4); Immature Granulocytes % 0.4 % (0-4); Lymphocytes # 0.8 K/mcL (0.6-4.6); Lymphocytes % 15.2 %; Mean Corpuscular HGB Conc 32.9 g/dL (31.6-35.5); Mean Corpuscular Hemoglobin 29.3 pg (28.0-33.3); Mean Corpuscular Volume 89.1 fL (83.0-100.0); Mean Platelet Volume 9.9 fL (9.4-12.4); Monocytes # 0.6 K/mcL (0.0-1.3); Monocytes % 11.4 %; Neutrophils # 3.8 K/mcL (1.6-8.9); Platelet Count 234 K/mcL (140-400); Red Blood Count 4.68 M/mcL (3.82-4.97); Red Cell Distribution Width 12.1 % (11.5-14.5); Segmented Neutrophils % 72.6 %; White Blood Count 5.3 K/mcL (4.3-11.1)
[2021-04-04 23:52] LABS: Albumin 4.7 g/dL (3.5-5.7); Albumin/Globulin Ratio 1.6 (1.1-2.2); Bilirubin,Total 0.5 mg/dL (0.3-1.0); Globulin 2.9 g/dL (2.4-3.5); Total Protein 7.6 g/dL (6.4-8.9)
[2021-04-05] MEDS ORDERED: cefTRIAXone 1,000 MG in Water for inj. (sterile) 10 ML IVP ONE (00:58)
[2021-04-05] MEDS ORDERED: Melatonin 3 MG TABLET PO PRN (02:05)
[2021-04-05] MEDS ORDERED: Naloxone 0.4 MG/ML INJ IVP PRN (02:05)
[2021-04-05] MEDS ORDERED: D5% in Water 1,000 ML IVC PRN (02:07)
[2021-04-05] MEDS ORDERED: *HR* Dextrose 50 % in Water (Syg) 50 ML SYRINGE IVP PRN (02:07)
[2021-04-05] MEDS ORDERED: Dextrose Gel 15 GM/37.5 ML TUBE PO PRN ×2 (02:07)
[2021-04-05] MEDS ORDERED: 0.9 % Sodium Chloride 1,000 ML IVC SCH (02:15)
[2021-04-05 02:56] LABS: Hematocrit 35.7 % (35.3-44.9); Mean Corpuscular HGB Conc 32.5 g/dL (31.6-35.5); Mean Corpuscular Hemoglobin 28.7 pg (28.0-33.3); Mean Corpuscular Volume 88.4 fL (83.0-100.0); Mean Platelet Volume 9.8 fL (9.4-12.4); Platelet Count 206 K/mcL (140-400); Red Blood Count 4.04 M/mcL (3.82-4.97); White Blood Count 4.6 K/mcL (4.3-11.1)
[2021-04-05 02:57] LABS: Hemoglobin 11.6 g/dL (11.5-15.4)
[2021-04-05 03:15] LABS: Calcium 8.4 mg/dL (8.6-10.3)
[2021-04-05] MEDS: Ondansetron 4 MG/2 ML VIAL IVP PRN ×3 (03:20→20:00)
[2021-04-05] MEDS: *HR* Heparin 5,000 UNIT/ML VIAL SQ SCH ×2 (06:04→17:31)
[2021-04-05] MEDS: Insulin LISPRO 300 UNITS/3 ML VIAL SUBQ SCH ×4 (08:44→19:49)
[2021-04-05] MEDS: levoFLOXacin 750 MG/150 ML 750 MG/150 ML BAG IVPB SCH (08:45)
[2021-04-05] MEDS: levETIRAcetam 250 MG TABLET PO SCH ×2 (08:46→19:55)
[2021-04-05] MEDS: Aspirin Enteric Coated 81 MG Tablet PO SCH (08:46)
[2021-04-05] MEDS: *HR* HYDROcodone/Acet 5/325 mg TABLET PO PRN ×2 (10:26→20:01)
[2021-04-05] MEDS: Latanoprost 2.5 ML BOTTLE BOTH EYES SCH (18:15)
[2021-04-06] MEDS: *HR* Heparin 5,000 UNIT/ML VIAL SQ SCH ×2 (05:31→17:36)
[2021-04-06] MEDS: levETIRAcetam 250 MG TABLET PO SCH ×2 (08:13→22:12)
[2021-04-06] MEDS: Insulin LISPRO 300 UNITS/3 ML VIAL SUBQ SCH ×4 (08:16→22:11)
[2021-04-06 08:52] LABS: Basophils % 0.7 %; Eosinophils % 0.9 %; Hematocrit 38.9 % (35.3-44.9); Hemoglobin 12.9 g/dL (11.5-15.4); Immature Granulocytes % 0.2 % (0-4); Lymphocytes # 1.9 K/mcL (0.6-4.6); Lymphocytes % 44.7 %; Mean Corpuscular HGB Conc 33.2 g/dL (31.6-35.5); Mean Corpuscular Hemoglobin 29.4 pg (28.0-33.3); Mean Corpuscular Volume 88.6 fL (83.0-100.0); Mean Platelet Volume 9.6 fL (9.4-12.4); Monocytes # 0.5 K/mcL (0.0-1.3); Monocytes % 11.9 %; Neutrophils # 1.8 K/mcL (1.6-8.9); Platelet Count 201 K/mcL (140-400); Red Blood Count 4.39 M/mcL (3.82-4.97); Red Cell Distribution Width 11.9 % (11.5-14.5); Segmented Neutrophils % 41.6 %; White Blood Count 4.3 K/mcL (4.3-11.1)
[2021-04-06 09:10] LABS: BUN/Creatinine Ratio 16 (6-26); Blood Urea Nitrogen 13 mg/dL (8-23); Carbon Dioxide 29 mEq/L (23-29); Chloride 104 mEq/L (98-107); Glucose 104 mg/dL (70-105); Osmolality,Calculated 286 (280-300); Sodium 138 mEq/L (136-145); eGFR For African Americans > 60 (> 60); eGFR For Non-African Americans > 60 (> 60)
[2021-04-06] MEDS: 0.9 % Sodium Chloride 1,000 ML IVC SCH ×2 (11:51→22:11)
[2021-04-06] MEDS: Latanoprost 2.5 ML BOTTLE BOTH EYES SCH (17:36)
[2021-04-07] MEDS: *HR* Heparin 5,000 UNIT/ML VIAL SQ SCH ×2 (05:34→17:34)
[2021-04-07 06:49] LABS: Basophils % 0.6 %; Eosinophils % 0.8 %; Hematocrit 37.6 % (35.3-44.9); Hemoglobin 12.7 g/dL (11.5-15.4); Immature Granulocytes % 0.2 % (0-4); Lymphocytes % 41.2 %; Mean Corpuscular HGB Conc 33.8 g/dL (31.6-35.5); Mean Corpuscular Hemoglobin 29.9 pg (28.0-33.3); Mean Corpuscular Volume 88.5 fL (83.0-100.0); Mean Platelet Volume 9.6 fL (9.4-12.4); Monocytes # 0.5 K/mcL (0.0-1.3); Monocytes % 9.7 %; Neutrophils # 2.3 K/mcL (1.6-8.9); Platelet Count 196 K/mcL (140-400); Red Blood Count 4.25 M/mcL (3.82-4.97); Red Cell Distribution Width 11.9 % (11.5-14.5); Segmented Neutrophils % 47.5 %; White Blood Count 4.9 K/mcL (4.3-11.1)
[2021-04-07 07:10] LABS: BUN/Creatinine Ratio 9 (6-26); Blood Urea Nitrogen 6 mg/dL (8-23); Calcium 8.3 mg/dL (8.6-10.3); Carbon Dioxide 30 mEq/L (23-29); Chloride 105 mEq/L (98-107); Glucose 112 mg/dL (70-105); Osmolality,Calculated 288 (280-300); Potassium 3.7 mEq/L (3.5-5.1); Sodium 140 mEq/L (136-145); eGFR For African Americans > 60 (> 60); eGFR For Non-African Americans > 60 (> 60)
[2021-04-07] MEDS: Insulin LISPRO 300 UNITS/3 ML VIAL SUBQ SCH ×4 (09:15→21:44)
[2021-04-07] MEDS: levETIRAcetam 250 MG TABLET PO SCH ×2 (09:17→21:44)
[2021-04-07] MEDS: Aspirin Enteric Coated 81 MG Tablet PO SCH (09:17)
[2021-04-07] MEDS: levoFLOXacin 750 MG/150 ML 750 MG/150 ML BAG IVPB SCH (09:17)
[2021-04-07] MEDS: *HR* HYDROcodone/Acet 5/325 mg TABLET PO PRN (11:45)
[2021-04-07] MEDS: Latanoprost 2.5 ML BOTTLE BOTH EYES SCH (17:34)
[2021-04-08 02:30] LABS: Basophils % 0.6 %; Eosinophils # 0.1 K/mcL (0.0-0.6); Hemoglobin 13.8 g/dL (11.5-15.4); Immature Granulocytes % 0.2 % (0-4); Lymphocytes # 1.8 K/mcL (0.6-4.6); Lymphocytes % 35.8 %; Mean Corpuscular HGB Conc 34.5 g/dL (31.6-35.5); Mean Corpuscular Hemoglobin 30.1 pg (28.0-33.3); Mean Corpuscular Volume 87.1 fL (83.0-100.0); Mean Platelet Volume 9.6 fL (9.4-12.4); Monocytes # 0.5 K/mcL (0.0-1.3); Monocytes % 9.4 %; Neutrophils # 2.7 K/mcL (1.6-8.9); Platelet Count 191 K/mcL (140-400); Red Blood Count 4.59 M/mcL (3.82-4.97); Red Cell Distribution Width 11.7 % (11.5-14.5); White Blood Count 5.1 K/mcL (4.3-11.1)
[2021-04-08 02:49] LABS: BUN/Creatinine Ratio 12 (6-26); Blood Urea Nitrogen 8 mg/dL (8-23); Calcium 8.6 mg/dL (8.6-10.3); Carbon Dioxide 28 mEq/L (23-29); Chloride 103 mEq/L (98-107); Glucose 128 mg/dL (70-105); Osmolality,Calculated 286 (280-300); Potassium 3.7 mEq/L (3.5-5.1); Sodium 138 mEq/L (136-145); eGFR For African Americans > 60 (> 60); eGFR For Non-African Americans > 60 (> 60)
[2021-04-08] MEDS: *HR* Heparin 5,000 UNIT/ML VIAL SQ SCH ×2 (05:38→18:07)
[2021-04-08] MEDS: Insulin LISPRO 300 UNITS/3 ML VIAL SUBQ SCH ×4 (09:25→21:19)
[2021-04-08] MEDS: Aspirin Enteric Coated 81 MG Tablet PO SCH (09:26)
[2021-04-08] MEDS: levETIRAcetam 250 MG TABLET PO SCH ×2 (09:26→21:19)
[2021-04-08] MEDS ORDERED: Isovue-370 500 ML BOTTLE IVP ONE (11:41)
[2021-04-08] MEDS ORDERED: levoFLOXacin 750 MG/150 ML 750 MG/150 ML BAG IVPB SCH (14:00)
[2021-04-08] MEDS: Isosorbide MONOnitrate (24 HR) 30 MG TAB.ER.24H PO SCH (15:28)
[2021-04-08] MEDS: Metoprolol XL (24 HR) Succ 25 MG TAB.ER.24H PO SCH (15:29)
[2021-04-08] MEDS ORDERED: Isovue-370 500 ML BOTTLE PO ONE (17:55)
[2021-04-08] MEDS: Latanoprost 2.5 ML BOTTLE BOTH EYES SCH (18:08)
[2021-04-09] MEDS: *HR* Heparin 5,000 UNIT/ML VIAL SQ SCH (05:36)
[2021-04-09 06:42] VITALS: O2SAT 95
[2021-04-09 07:20] LABS: BUN/Creatinine Ratio 14 (6-26); Blood Urea Nitrogen 10 mg/dL (8-23); Calcium 9.4 mg/dL (8.6-10.3); Carbon Dioxide 27 mEq/L (23-29); Chloride 103 mEq/L (98-107); Glucose 115 mg/dL (70-105); Osmolality,Calculated 284 (280-300); Potassium 3.8 mEq/L (3.5-5.1); Sodium 137 mEq/L (136-145); eGFR For African Americans > 60 (> 60); eGFR For Non-African Americans > 60 (> 60)
[2021-04-09 08:26] LABS: Basophils % 0.6 %; Eosinophils # 0.1 K/mcL (0.0-0.6); Eosinophils % 1.6 %; Hematocrit 39.2 % (35.3-44.9); Hemoglobin 13.3 g/dL (11.5-15.4); Immature Granulocytes % 0.4 % (0-4); Lymphocytes # 1.9 K/mcL (0.6-4.6); Lymphocytes % 38.3 %; Mean Corpuscular HGB Conc 33.9 g/dL (31.6-35.5); Mean Corpuscular Hemoglobin 29.3 pg (28.0-33.3); Mean Corpuscular Volume 86.3 fL (83.0-100.0); Mean Platelet Volume 9.8 fL (9.4-12.4); Monocytes # 0.5 K/mcL (0.0-1.3); Monocytes % 10.1 %; Neutrophils # 2.4 K/mcL (1.6-8.9); Platelet Count 191 K/mcL (140-400); Red Blood Count 4.54 M/mcL (3.82-4.97); Red Cell Distribution Width 11.9 % (11.5-14.5); White Blood Count 4.9 K/mcL (4.3-11.1)
[2021-04-09] MEDS: Insulin LISPRO 300 UNITS/3 ML VIAL SUBQ SCH ×2 (09:35→11:35)
[2021-04-09] MEDS: Aspirin Enteric Coated 81 MG Tablet PO SCH (09:44)
[2021-04-09] MEDS: Isosorbide MONOnitrate (24 HR) 30 MG TAB.ER.24H PO SCH (09:44)
[2021-04-09] MEDS: Metoprolol XL (24 HR) Succ 25 MG TAB.ER.24H PO SCH (09:44)
[2021-04-09] MEDS: levETIRAcetam 250 MG TABLET PO SCH (09:47)
[2021-04-09 10:49] VITALS: BP 119/70; PULSE 72; TEMP 98.1
== END 2021-04-09 14:24 | disposition home or self-care (01) | DRG 690 ==
LOC: 3ANU 21:11 → EMEROOARM 21:11 → SUATTDRO 04-05 01:33 → 3ANU 04-05 02:13
PROVIDERS: ADMIT Student in an Organized Health Care Education/Training Program; ATTEND Internal Medicine